=== PATIENT | male | born 1995 | race Caucasian/White ===

== ENCOUNTER 2020-03-27 06:38 | Emergency (ER) | payer OTHER ==
[2020-03-27] MEDS ORDERED: HYDROmorphone 1 MG/ML CARPUJECT IVP STA (07:19)
[2020-03-27] MEDS ORDERED: KETOROLAC 30 MG/ML VIAL IVP STA (07:19)
[2020-03-27] MEDS ORDERED: SODIUM CHLORIDE 0.9% 1,000 ML IV STA (07:19)
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
[2020-03-27] MEDS ORDERED: IOVERSOL 320 100 ML VIAL IVP ONE ×2 (07:30→08:06)
[2020-03-27 07:44] LABS: BASOPHILS % (AUTO) 0.5 %; EOSINOPHILS # (AUTO) 0.2 10^3/uL (0.0-0.7); EOSINOPHILS % (AUTO) 2.1 %; HGB - HEMOGLOBIN 16.2 g/dL (14.0-18.0); LYMPHOCYTES # (AUTO) 1.5 10^3/uL (1.5-3.5); LYMPHOCYTES % (AUTO) 17.9 %; MEAN CORPUSCULAR HEMOGLOBIN 30.4 pg (27.0-31.0); MEAN CORPUSCULAR HGB CONC 34.2 g/dL (32.0-36.0); MEAN CORPUSCULAR VOLUME 88.9 fL (80.0-94.0); MEAN PLATELET VOLUME 9.7 fL (7.4-11.4); MONOCYTES # (AUTO) 0.7 10^3/uL (0.0-1.0); NEUTROPHILS # (AUTO) 5.8 10^3/uL (1.5-6.6); NEUTROPHILS % (AUTO) 70.9 %; PLT - PLATELET COUNT 245 10^3/uL (130-450); RED BLOOD COUNT 5.33 10^6/uL (4.70-6.10); RED CELL DISTRIBUTION WIDTH 12.9 % (12.0-15.0); WHITE BLOOD COUNT 8.2 x10^3/uL (4.8-10.8)
[2020-03-27 07:53] LABS: INR 1.1 (0.8-1.2); PT - PROTHROMBIN TIME 12.1 secs (9.9-12.6)
[2020-03-27 08:01] LABS: ALBUMIN 5.1 g/dL (3.2-5.5); ALBUMIN/GLOBULIN RATIO 2.1 (1.0-2.2); BILIRUBIN,TOTAL 0.9 mg/dL (0.2-1.0); CALCIUM 9.3 mg/dL (8.5-10.3); TOTAL PROTEIN 7.5 g/dL (6.7-8.2)
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
[2020-03-27 09:17] LABS: BILIRUBIN,URINE NEGATIVE (NEGATIVE); GLUCOSE, URINE (UA) NEGATIVE (NEGATIVE); KETONES,URINE (UA) TRACE mg/dL (NEGATIVE); LEUKOCYTE ESTERASE, URINE NEGATIVE (NEGATIVE); NITRITE,URINE NEGATIVE (NEGATIVE); OCCULT BLOOD,URINE NEGATIVE (NEGATIVE); PH,URINE 6.5 PH (5.0-7.5); PROTEIN,URINE NEGATIVE (NEGATIVE); UROBILINOGEN,URINE 0.2 (NORMAL) E.U./dL (NORMAL)
[2020-03-27 09:22] LABS: CLARITY,URINE CLEAR (CLEAR)
[2020-03-27 09:32] VITALS: BP 147/86
== END 2020-03-27 09:45 | disposition home or self-care (01) ==
LOC: ED 06:38
DX: R07.89 Other chest pain (principal); R10.9 Unspecified abdominal pain; V20.4XXA Motorcycle driver injured in collision with pedestrian or animal in traffic accident, initial encounter; Y92.410 Unspecified street and highway as the place of occurrence of the external cause; K42.9 Umbilical hernia without obstruction or gangrene
CPT/HCPCS: 36415; 71260; 74177; 80053; 81003; 83690; 85025; 85610; 86850; 86900; 86901; 96361; 96374; 99284; J1170; Q9967; 81001; 87086